=== PATIENT | female | born 1985 | race Caucasian/White ===

== ENCOUNTER → 2017-11-04 | Outpatient (REF) ==
[2017-11-04 14:17] LABS: RUBELLA IgG QUALITATIVE IMMUNE (IMMUNE)
== END ==
LOC: M LAB 12:34
DX: Z02.9 Encounter for administrative examinations, unspecified (principal)

== ENCOUNTER → 2017-12-25 | Outpatient (CLI) | payer MEDICAID | LOC: M OUTALCOH 07:46 | DX: F10.20 Alcohol dependence, uncomplicated (principal); F12.20 Cannabis dependence, uncomplicated ==

== ENCOUNTER 2018-01-06 13:28 | Outpatient (RCR) | payer MEDICAID | END 2018-01-23 | LOC: M OUTALCOH 01-08 08:45 | DX: F10.20 Alcohol dependence, uncomplicated (principal); F12.20 Cannabis dependence, uncomplicated; F17.200 Nicotine dependence, unspecified, uncomplicated ==

== ENCOUNTER 2018-01-24 11:43 | Outpatient (RCR) | payer MEDICAID | END 2018-02-22 | LOC: M OUTALCOH 01-27 08:45 | DX: F10.20 Alcohol dependence, uncomplicated (principal); F17.200 Nicotine dependence, unspecified, uncomplicated; F12.20 Cannabis dependence, uncomplicated ==

== ENCOUNTER 2018-02-27 11:44 | Outpatient (RCR) | payer MEDICAID | END 2018-03-25 | LOC: M OUTALCOH 11:44 | DX: F10.20 Alcohol dependence, uncomplicated (principal); F12.20 Cannabis dependence, uncomplicated; F17.200 Nicotine dependence, unspecified, uncomplicated ==

== ENCOUNTER → 2018-03-11 | Outpatient (REF) | payer MEDICAID ==
[2018-03-11 17:04] LABS: BASO # 0.1 10^3/uL (0.0-0.2); EOS # 0.3 10^3/uL (0.0-0.50); HEMATOCRIT 44.5 % (36.0-47.0); HEMOGLOBIN 15.1 g/dl (12.0-15.5); IMMATURE GRANULOCYTE % 0.2 % (0-3.0); LYMPH # 2.1 10^3/uL (1.5-4.5); LYMPH % 36.3 % (24.0-44.0); MEAN CORPUSCULAR HGB CONC 33.9 g/dl (32.0-36.5); MEAN CORPUSCULAR VOLUME 94.3 fl (80.0-96.0); MONO # 0.6 10^3/uL (0.0-0.8); MONO % 10.7 % (0.0-5.0); NEUTROPHILS # 2.7 10^3/uL (1.8-7.7); NEUTROPHILS % 46.8 % (36.0-66.0); PLATELET COUNT, AUTOMATED 286 10^3/uL (150-450); RED BLOOD COUNT 4.72 10^6/uL (4.00-5.40); RED CELL DISTRIBUTION WIDTH 12.7 % (11.5-14.5); WHITE BLOOD COUNT 5.8 10^3/uL (4.0-10.0)
[2018-03-11 17:42] LABS: ALBUMIN 3.8 GM/DL (3.2-5.2); ALBUMIN/GLOBULIN RATIO 1.09 (1.00-1.93); ALKALINE PHOSPHATASE 55 U/L (45-117); ALT/SGPT 51 U/L (12-78); ANION GAP 9 MEQ/L (8-16); AST/SGOT 35 U/L (7-37); BILIRUBIN,TOTAL 0.6 MG/DL (0.2-1.0); BLOOD UREA NITROGEN 14 MG/DL (7-18); CALCIUM LEVEL 8.7 MG/DL (8.5-10.1); CARBON DIOXIDE LEVEL 25 MEQ/L (21-32); CHLORIDE LEVEL 110 MEQ/L (98-107); CHOLESTEROL LEVEL 225 MG/DL (<200); CHOLESTEROL RISK RATIO 2.319 (<5); CREATININE FOR GFR 0.64 MG/DL (0.55-1.30); FERRITIN 31 NG/ML (8-252); GLOMERULAR FILTRATION RATE > 60.0 (>60); GLUCOSE, FASTING 93 MG/DL (70-100); HDL CHOLESTEROL 97 MG/DL (>40); IRON (FE) 139 UG/DL (50-170); LDL CHOLESTEROL 109.6 MG/DL (<100); NON-HDL-C 128 MG/DL; PERCENT SATURATION 41.4 % (13.2-45.0); POTASSIUM SERUM 4.2 MEQ/L (3.5-5.1); SODIUM LEVEL 144 MEQ/L (136-145); THYROID STIMULATING HORMONE 0.925 uIU/ML (0.358-3.740); TOTAL IRON BINDING CAPACITY 336 UG/DL (250-450); TOTAL PROTEIN 7.3 GM/DL (6.4-8.2); TRIGLYCERIDES LEVEL 92 MG/DL (<150)
== END ==
LOC: M SFHCCAPE 08:31
DX: D50.9 Iron deficiency anemia, unspecified (principal); Z13.6 Encounter for screening for cardiovascular disorders; F32.0 Major depressive disorder, single episode, mild

== ENCOUNTER → 2018-04-15 | Outpatient (REF) | payer OTHER, MEDICAID ==
[2018-04-16 09:22] LABS: HEPATITIS B SURFACE ANTIBODY NEGATIVE (POSITIVE)
[2018-04-16 09:34] LABS: HIV 1&2 SCREEN CENTAUR NEGATIVE (NEGATIVE)
[2018-04-18 08:06] LABS: ALPHA 2-MACROGLOBULIN 238 mg/dL (110-276); ALT 34 IU/L (0-40); APOLIPOPROTEIN A-1 221 mg/dL (116-209); FIBROSIS SCORE 0.13 (0.00-0.21); GGT 98 IU/L (0-60); HAPTOGLOBIN 129 mg/dL (34-200); NECROINFLAM SCORE 0.14 (0.00-0.17); NECROINFLAMM GRADE A0-No activity (.); TOTAL BILIRUBIN 0.6 mg/dL (0.0-1.2)
[2018-04-20 00:06] LABS: HEPATITIS C QUANTITATION 774400 IU/mL (.); HEPATITIS C VIRUS GENOTYPE 3 (.)
== END ==
LOC: M SFHCPLAZ 09:45
DX: B18.2 Chronic viral hepatitis C (principal)
CPT/HCPCS: 84460

== ENCOUNTER 2018-04-26 23:27 | Emergency (ER) | payer OTHER ==
[2018-04-27] MEDS: IBUPROFEN 600 MG TAB PO (01:00)
== END 2018-04-27 01:20 | disposition home or self-care (01) ==
LOC: M ED 23:27
DX: M25.551 Pain in right hip (principal); R20.2 Paresthesia of skin; Z86.19 Personal history of other infectious and parasitic diseases; Z72.0 Tobacco use; Z79.899 Other long term (current) drug therapy
CPT/HCPCS: 73502